=== PATIENT | female | born 1990 | race Caucasian/White ===

== ENCOUNTER 2019-06-16 07:21 | Inpatient (IN) | payer OTHER ==
[2019-06-16] VITALS (7 sets, daily range): BP systolic 90–127; BP diastolic 41–66; Ht 160 cm; Wt 61.7 kg
[~2019-06-16] VITALS: Ht 160 cm; Wt 61.7 kg
--- NOTE | 2019-06-16 07:44 | NUR ---
RECEIVED PATIENT IN OB ROOM. PATIENT C/O VOMITING STATES "IT STARTED THIS MORNING," AND DIARRHEA X 3 DAYS STATES "IT'S WATERY." PATIENT STATES SHE WAS SEEN IN URGENT CARE 2 WEEKS AGO AND HAD LAB WORK, BUT HAS NOT BEEN BACK THERE AGAIN.PATIENT IS AAO X 4 (NAME, DATE, TIME AND CONDITION). EYS - REHANA. MUCUS - PINK. LUNGS - CTA. BS PRESENT X 4 QUADRANTS. B/L UPPER AND LOWER EXT PULSES PALPABLE. WILL CONTINUE TO MONITOR//APR RN
--- NOTE | 2019-06-16 08:53 | NUR ---
DR AVALOS AT BEDSIDE FOR EVAL AT THIS TIME, APR RN AT BEDSIDE PRINTING ENGINEER.//APR RN
[2019-06-16 09:05] LABS: PLATELET COUNT 163 x10^3mcL (130-400)
[2019-06-16 09:17] LABS: BASOPHIL % 0 % (0-2); RED CELL DISTRIBUTION WIDTH 21.8 % (11.5-14.5)
[2019-06-16 09:56] LABS: CALCIUM 8.3 mg/dL (8.5-10.1); CARBON DIOXIDE 26.2 mmol/L (21-32); CHLORIDE SERUM 106 mmol/L (98-107); CREATININE SERUM 0.7 mg/dL (0.6-1.0); GFR1 > 60 mL/min; GLUCOSE SERUM 103 mg/dL (74-106); POTASSIUM SERUM 3.9 mmol/L (3.5-5.1); SODIUM SERUM 141 mmol/L (136-145)
[2019-06-16 10:03] LABS: ALBUMIN 3.9 g/dL (3.4-5.0); ALKALINE PHOSPHATASE 59 U/L (46-116); ALT/SGPT 17 U/L (14-59); AST/SGOT 10 U/L (15-37); BILIRUBIN TOTAL 0.48 mg/dL (0.20-1.00); TOTAL PROTEIN, SERUM 7.4 g/dL (6.4-8.2)
--- NOTE | 2019-06-16 10:27 | NUR ---
REPORT GIVEN TO DAVID WEATHERS FOR ROOM 209-A. PATIENT MADE AWARE OF THE TRANSFER.//APR RN
[2019-06-16 10:39] LABS: T3 TOTAL 0.9 ng/mL
[2019-06-16 10:43] LABS: rbc morphology (normal/abnorm) ABNORMAL (NORMAL)
[2019-06-16 10:43] LABS: FREE T4 0.98 ng/dL (0.76-1.46); FREE THYROXINE INDEX 2.1 ug/dL (1.4-4.5); T4(THYROXINE) 6.5 ug/dL (4.7-13.3)
[2019-06-16 10:44] LABS: ovalocyte/elliptocyte 3+
--- NOTE | 2019-06-16 11:00 | NUR ---
RECEIVED FROM ED AWAKE, ALERT AND ORIENTED. IN NO RESP. DISTRESS. VS STABLE. PT CAME IN WITH C/O GEN. WEAKNESS AND DAIRRHEA X3 DAYS. NAUSEA AND VOMITING THIS AM. MEDICATED IN ER WITH FAIR RELIEF. NO N/V AT THIS TIME. NO C/O PAIN OR DISCOMFORT. PT ORIENTED TO ROOM. CALL LIGHT WITHIN REACH. WILL CONTINUE WITH PLAN OF CARE.
[2019-06-16 11:20] LABS: MAGNESIUM 1.8 mg/dL (1.8-2.4)
[2019-06-16 11:24] LABS: CHOLESTEROL/HDL RATIO 2.7
--- NOTE | 2019-06-16 12:31 | NUR ---
PT HAS TEMP 100.4. CENTERLESS GRINDER TENDER ROCHA NOTIFIED. TYLENOL GIVEN AND COOLING MEASURES INITIATED. PER CENTERLESS GRINDER TENDER CAN START BLOOD TRANSFUSION ONCE NO FEVER. PT IN NO DISTRESS. DENIES ANY DISCOMFORT AT THIS TIME.
[2019-06-16 12:38] LABS: PATH REVIEW for HEMA NO
--- NOTE | 2019-06-16 13:33 | NUR ---
PT STILL HAS TEMP OF 100.9. COOLING MEASURES MAINTAINED. FAMILY AT BEDSIDE. IVF INFUSING WELL AND SITE CLEAR.
--- NOTE | 2019-06-16 15:07 | NUR ---
BLOOD TRANSFUSION STARTED 1ST UNIT PRBC TRANSFUSION AT THIS TIME. PT TOLERATING WELL. NO AREACTION NOTED. BL SLIGHTLY LOW. ADMINISTRATIVE MANAGER AWARE. FAMILY AT BEDSIDE. WILL CONTINUE TO MONITOR.
--- NOTE | 2019-06-16 15:54 | NUR ---
RESTING AT THIS TIME. NO DISTRESS. VS WNL. BLOOD TRANSFUSION IN PROGRESS.
[2019-06-16 18:08] LABS: BASOPHIL % 0.2 % (0-2)
[2019-06-16 18:28] LABS: CALCIUM 7.5 mg/dL (8.5-10.1); CARBON DIOXIDE 25.2 mmol/L (21-32); CHLORIDE SERUM 105 mmol/L (98-107); CREATININE SERUM 0.6 mg/dL (0.6-1.0); GFR1 > 60 mL/min; GLUCOSE SERUM 90 mg/dL (74-106); POTASSIUM SERUM 3.4 mmol/L (3.5-5.1); SODIUM SERUM 141 mmol/L (136-145)
[2019-06-16 18:29] LABS: PLATELET COUNT 129 x10^3mcL (130-400); RED CELL DISTRIBUTION WIDTH 27.4 % (11.5-14.5)
[2019-06-16 18:44] LABS: ovalocyte/elliptocyte 2+; rbc morphology (normal/abnorm) ABNORMAL (NORMAL)
--- NOTE | 2019-06-16 18:50 | NUR ---
1ST UNIT PRBC COMPLETED, PT TOLERATED WELL. NO ACTIVE REACTION NOTED. TEMP SLIGHTLY ELEVETED 100.0. COOLING MEASURES IN PLACE. WILL MEDICATE PER ORDER.
--- NOTE | 2019-06-16 19:22 | NUR ---
TYLENOL GIVEN FOR TEMP 100.0 AND MINOR BODY ACHE. PT REMAINS IN NO ACUTE DISTRESS. IVF INFUSING WELL AND SITE CLEAR. CALL LIGHT WITHIN REACH. WILL BE ENDORSED TO INCOMING SHIFT.
--- NOTE | 2019-06-16 20:00 | NUR ---
PT HAD TEMP OF 100.8,WILL CONTINUE TO MONITOR.
--- NOTE | 2019-06-16 20:01 | NUR ---
PT RECIEVED AAO REG REP NO SOB,HOB,HL TO THE LT HAND WITH THE SITE INTACT,ABDO IS SOFT WITH ACTIVE BOWEL SOUND,KEPT CLEAN AND DRY TO TOUCH,NO PAIN REPORTED AT THIS TIME,CALL LIGHT EASY REACHED AND WILL CONTINUE TO MONITOR,
--- NOTE | 2019-06-16 20:06 | NUR ---
PT WITH TEMP 100.8 PATIENT HAD TYLENOL 650 MG PO AND PT BEING ENCOURAGE TO DRINK WATER,WILL CONTINUE TO MONITOR.
--- NOTE | 2019-06-16 21:50 | NUR ---
SECOND UNIT OF BLOOD TRANSFUSION STARTED ODER WITH TEMP OF 98.4,WILL CONTINUE TO MONITOR.
--- NOTE | 2019-06-16 22:00 | NUR ---
PRBC TRANSFUSION INITIATED, UNITE #[id number]. PRE-VITALS SIGNS ARE FOLLOWS: CV=985/46, AK=83, TEMP=98.4, RR=18, AND O2 SAT=99% RA. IV SITE ON THE LAC GAUGE 20 IS PATENT AND INTACT. INITIAL TRANSFUSION RATE AT 70 ML/HR
--- NOTE | 2019-06-16 22:15 | NUR ---
NO ADVERSE REACTIONS NOTED DURING BLOOD TRANSFUSION. VITAL SIGNS: BP=96/41, RR=18, TEMP=98.0, IL=80, O2 SAT=97%, RA. PRBC INFUSION RATE INCREASED TO 120 ML/HR. WILL CONT TO MONITOR
--- NOTE | 2019-06-16 22:36 | NUR ---
TRANSFUSION IN PROGRESS NO ADVERSE REACTION NOTICE AT THIS TIME,WILL CONTINUE TO MONITOR.
--- NOTE | 2019-06-17 00:43 | NUR ---
BLOOD TRANSFUSION COMPLETED WITHOUT ANY ADVERSE REACTION AND WILL CONTINUE TO MONITOR,TEMP OF 97.4 AFTER BLOOD COMPLETED,WILL MONITOR.
[2019-06-17 05:44] VITALS: BP 93/48
--- NOTE | 2019-06-17 05:56 | NUR ---
PT HAD A RESTING NIGHT NO CHANGE AT THIS TIME,WILL CONTINUE TO MONITOR.
[2019-06-17 06:09] LABS: BASOPHIL % 0.4 % (0-2)
[2019-06-17 06:56] LABS: CALCIUM 7.4 mg/dL (8.5-10.1); CARBON DIOXIDE 25.1 mmol/L (21-32); CHLORIDE SERUM 111 mmol/L (98-107); CREATININE SERUM 0.7 mg/dL (0.6-1.0); GFR1 > 60 mL/min; GLUCOSE SERUM 94 mg/dL (74-106); POTASSIUM SERUM 3.9 mmol/L (3.5-5.1); SODIUM SERUM 144 mmol/L (136-145)
[2019-06-17 07:06] LABS: PLATELET COUNT 120 x10^3mcL (130-400); RED CELL DISTRIBUTION WIDTH 32.8 % (11.5-14.5)
--- NOTE | 2019-06-17 09:00 | NUR ---
CALL PHARMACY FOR FERRLECIT IV, PATIENT AWAKE AND ALERT IN BED NO COMPLAINS. MOTHER AT BEDSIDE. ADMINISTERED COLACE AND FERROUS SULFATE PO. NEEDS MET, CONT TO MONITOR.
[2019-06-17 09:08] LABS: ovalocyte/elliptocyte 2+
[2019-06-17 09:09] LABS: rbc morphology (normal/abnorm) ABNORMAL (NORMAL)
[2019-06-17 09:17] VITALS: BP 99/50
--- NOTE | 2019-06-17 13:38 | NUR ---
PATIENT AMBULATE IN HALLWAY WITH MOTHER, NO COMPLAINS.
--- NOTE | 2019-06-17 14:25 | NUR ---
PATIENT'S MOTHER AT BEDSIDE WANT UPDATE WHEN PATIENT IS DISCHARGE, SPOKE WITH BILLING AND ACCOUNTING STAFF ASSISTANT JUSTYN ARENAS BILLING AND ACCOUNTING STAFF ASSISTANT WILL CHECK LAB CBC AND BMP IN AM IF HGB IS NOT DROPPING. BILLING AND ACCOUNTING STAFF ASSISTANT WILL TALK TO MOTHER.
[2019-06-17 16:41] VITALS: BP 102/58
--- NOTE | 2019-06-17 17:42 | NUR ---
PATIENT WALKING IN HALLWAY WITH FAMILY BACK TO ROOM, MED GIVEN. NEEDS MET. CONT TO MONITOR.
[2019-06-17 19:50] VITALS: BP 104/55
--- NOTE | 2019-06-17 19:50 | NUR ---
PT IS A/O X4. DENIES GAYTAN OR DIZZINESS. FAMILY IS AT BEDSIDE. BREATHING IS EVEN AND UNLABORED. NO SIGNS OF RESP DISTRESS. BP 104/55 HR 68. DENIES CP. BOWEL SOUNDS ACTIVE IN ALL 4Q. DENIES N/V OR CONSTIPATION. SKIN IS INTACT. NO EDEMA NOTED. CALL LIGHT WITHIN REACH. WILL CONTINUE TO MONITOR.
[2019-06-17 20:16] VITALS: BP 104/55
--- NOTE | 2019-06-17 21:00 | NUR ---
ROUTINE MEDICATIONS GIVEN AND TOLERATED WELL. DENIES PAIN OR DIZZINESS AT THIS TIME. FAMILY AT BEDSIDE. CALL LIGHT WITHIN REACH. WILL CONTINUE TO MONITOR.
--- NOTE | 2019-06-17 23:29 | NUR ---
PT IS ASLEEP. BREATHING IS EVEN AND UNLABORED. NO SIGNS OF RESP DISTRESS. BED IN LOWEST POSITION. CALL LIGHT WITHIN REACH. WILL CONTINUE TO MONITOR.
--- NOTE | 2019-06-18 01:55 | NUR ---
PT IS AWAKE AND JUST CAME BACK FROM THE BATHROOM. BREATHING IS EVEN AND UNLABORED. PT DENIES ANY PAIN OR SOB. BED IN LOWEST POSITION. CALL LIGHT WITHIN REACH. WILL CONTINUE TO MONTIOR.
--- NOTE | 2019-06-18 03:30 | NUR ---
PT C/O PAIN 5/10 ON IV SITE. IV IS INTACT AND PATENT. NO SWELLING OBSERVED. PT RECEIVED ICE PACKS, BUT NO RELIEF. GAVE TYLENOL. WILL REASSESS AND CONTINUE TO MONITOR. BED IN LOWEST POSITION, CALL LIGHT WITHIN REACH.
--- NOTE | 2019-06-18 05:57 | NUR ---
PT SLEPT IN INTERVALS THROUGHOUT THE NIGHT. PT COMPLIED WITH NURSING CARE THROUGHOUT SHIFT W/ NO ACUTE EVENTS OVERNIGHT. COMFORT AND SAFETY MEASURES MAINTAINED. ALL NEEDS ASSESSED AND ATTENDED TO. CURRENTLY DENIES PAIN ON IV SITE. WILL CONTINUE TO MONITOR AND ENDORSE CARE TO DAY SHIFT NURSE.
[2019-06-18 05:58] VITALS: BP 111/61
[2019-06-18 06:21] LABS: BASOPHIL % 0.6 % (0-2)
[2019-06-18 06:23] LABS: CALCIUM 8.1 mg/dL (8.5-10.1); CHLORIDE SERUM 109 mmol/L (98-107); CREATININE SERUM 0.8 mg/dL (0.6-1.0); GFR1 > 60 mL/min; GLUCOSE SERUM 90 mg/dL (74-106); POTASSIUM SERUM 4.1 mmol/L (3.5-5.1); SODIUM SERUM 144 mmol/L (136-145)
[2019-06-18 06:54] LABS: PLATELET COUNT 95 x10^3mcL (130-400); RED CELL DISTRIBUTION WIDTH 32.3 % (11.5-14.5)
--- NOTE | 2019-06-18 07:23 | NUR ---
PT LAYING IN BED, NO NEEDS IDENTIFIED, IV LAC PATENT AND INTACT ALL QUESTIONS AND CONCERNS ADDRESSED IN REPORT
--- NOTE | 2019-06-18 07:24 | NUR ---
ENDORSED PT CARE TO STEFANY HERNANDEZ.
[2019-06-18 09:10] VITALS: BP 105/45
[2019-06-18 11:26] LABS: rbc morphology (normal/abnorm) ABNORMAL (NORMAL)
[2019-06-18] MEDS ORDERED: FER300 PO (12:05)
[2019-06-18] MEDS ORDERED: PHARMASSURE VI500 MG PO (12:05)
[2019-06-18 12:27] VITALS: BP 105/45
--- NOTE | 2019-06-18 13:15 | NUR ---
PATIENT STABLE FOR DISCHARGE PER MD. DISCHARGE INSTRUCTIONS AND SUMMARY DISCUSSED. PATIENT VERBALIZED UNDERSTANDING AND AGREES TO FOLLOW UP APPOINTMENT. ALL QUESTIONS AND CONCERNS WERE ADDRESSED. IV REMOVED AND IV POLE CLEARED. ID BANDS CUT. PT ESCORTED TO LOBBY.
== END 2019-06-18 13:16 | disposition home or self-care (01) | DRG 663 ==
LOC: ED 07:21 → MU 09:42
PROVIDERS: Specialist; ADMIT Internal Medicine
PROC: 30233N1 Transfusion of Nonautologous Red Blood Cells into Peripheral Vein, Percutaneous Approach (ICD-10-PCS; principal; 2019-06-16)
DX: D50.9 Iron deficiency anemia, unspecified (principal); D69.59 Other secondary thrombocytopenia; E86.0 Dehydration
CPT/HCPCS: 84439; G0378; J2405; J2916; J7030; J7040; P9016

== ENCOUNTER 2019-08-12 18:26 | Emergency (ER) | payer SELFPAY ==
[~2019-08-12] VITALS: Ht 160 cm; Wt 65.3 kg
[~2019-08-12 18:26] MED LIST: FER300 PO; PHARMASSURE VI500 MG PO
[2019-08-12 18:55] VITALS: Ht 160 cm; Wt 65.3 kg
[2019-08-12 23:50] VITALS: BP 112/88
== END 2019-08-12 23:50 | disposition home or self-care (01) ==
LOC: ED 18:26
DX: T19.2XXA Foreign body in vulva and vagina, initial encounter (principal); Z86.2 Personal history of diseases of the blood and blood-forming organs and certain disorders involving the immune mechanism; X58.XXXA Exposure to other specified factors, initial encounter; Y93.89 Activity, other specified; Y92.89 Other specified places as the place of occurrence of the external cause; Y99.8 Other external cause status
CPT/HCPCS: 87491; 87591

== ENCOUNTER 2020-02-10 01:47 | Emergency (ER) | payer SELFPAY ==
[~2020-02-10] VITALS: Ht 157.5 cm; Wt 68.0 kg
[2020-02-10 01:50] VITALS: Ht 157.5 cm; Wt 68.0 kg
[2020-02-10 02:45] LABS: microscopic required? NO
[2020-02-10 02:53] LABS: UA SPECIFIC GRAVITY >=1.030 (1.005-1.035); urine erythrocyte NEGATIVE (NEGATIVE)
[2020-02-10 03:02] LABS: BASOPHIL % 0.5 % (0-2); PLATELET COUNT 211 x10^3mcL (130-400)
[2020-02-10 03:05] LABS: CALCIUM 8.9 mg/dL (8.5-10.1); CARBON DIOXIDE 29.1 mmol/L (21-32); CHLORIDE SERUM 105 mmol/L (98-107); CREATININE SERUM 0.8 mg/dL (0.6-1.0); GFR1 > 60 mL/min; GLUCOSE SERUM 99 mg/dL (74-106); POTASSIUM SERUM 3.9 mmol/L (3.5-5.1); SODIUM SERUM 141 mmol/L (136-145)
[2020-02-10 03:10] LABS: ALBUMIN 3.9 g/dL (3.4-5.0); ALKALINE PHOSPHATASE 52 U/L (46-116); ALT/SGPT 32 U/L (14-59); AST/SGOT 18 U/L (15-37); C REACTIVE PROTEIN < 0.2 mg/dL (<=0.9); LACTIC DEHYDROGENASE (LDH) 130 U/L (100-190); TOTAL PROTEIN, SERUM 7.1 g/dL (6.4-8.2)
[2020-02-10 03:28] LABS: RED CELL DISTRIBUTION WIDTH 17.6 % (11.5-14.5)
[2020-02-10 05:10] VITALS: BP 107/45
== END 2020-02-10 05:10 | disposition home or self-care (01) ==
LOC: ED 01:47
PROVIDERS: Emergency Medicine
DX: Z20.828 Contact with and (suspected) exposure to other viral communicable diseases (principal)
CPT/HCPCS: 36415; 36600; 83880; 85378; 87804; Q0092